=== PATIENT | female | born 1985 | race Caucasian/White ===

== ENCOUNTER 2018-08-30 08:58 | Inpatient (IN) | payer OTHER ==
[2018-08-30] MEDS ORDERED: LR 500 ML IV ONE (09:36)
[2018-08-30] MEDS ORDERED: CITRIC ACID/SODIUM CITRATE 30 ML UDCUP PO ONE (09:36)
[2018-08-30] MEDS ORDERED: ceFAZolin 2 GM/DEXTROSE 100 ML IV ONE (09:36)
--- NOTE | 2018-08-30 09:36 | PDGENHP ---
History and Physical - Chief Complaint Scheduled RLTCS, bilateral salpingectomies - History of Present Illness Calli is a 33 yo today at 39w0d by VIRIDIANA of 09/06/18 who presents for scheduled RLTCS (h/o 2 prior) with bilateral salpingectomies. Uncomplicated 3rd - two boys at home and having a baby girl. Transferred care to our office at 34 weeks. H/o clubbed feet bilaterally with G2 - christie garret is doing well, has not needed surgery, just bracing, etc. Also h/o anxiety and depression, no meds. Labs: A pos Antibody Neg RPR NR Rubella IMMUNE Hep B neg HIV neg GC/C neg Quad screen Neg Glucola 76 GBS NEGATIVE History Information - Allergies/Home Medication List Allergies/Adverse Reactions: No Known Allergies Allergy (Unverified 02/12/12 17:01) Home Medications: No Medications [NO HOME MEDICATIONS] 02/12/12 [Last Taken 02/12/12] I have personally reviewed and updated: family history, medical history, social history, surgical history - Past Medical History no pertinent PMH - Surgical History Additional surgical history: H/o LTCS x 2 - Family History Positive for: non-pertinent - Social History Smoking Status: Never smoked Alcohol Use: None Review of Systems Review of Systems: ROS: 10pt was reviewed & negative except for what was stated in HPI & below Physical Exam Physical Exam: Pleasant, alert, NAD. Belly soft, gravid, longitudinal lie. FHR 140bpm, mod aashish, accels present, no decels. Lab Data & Imaging Review 08/30/18 09:40 08/30/18 09:40 Assessment & Plan Assessment: 33 yo at 39w0d presents for scheduled RLTCS and bilateral salpingectomies. - Routine preop orders. - RBA discussed and consents signed again in person today. - Also specifically discussed bilateral salpingectomies and differentiation from tubal ligation. They are definitely sure they want to proceed with that and we decided together that salpingectomy sounded like the best approach. - Weight-based Ancef. MARCELO
[2018-08-30] MEDS ORDERED: ACETAMINOPHEN 500 MG TAB ONE (09:41)
[2018-08-30] MEDS: ACETAMINOPHEN 500 MG TAB PO SCH (09:46)
[2018-08-30] MEDS ORDERED: LR 1,000 ML IV SCH (10:00)
[2018-08-30 10:08] LABS: PLATELET COUNT 232 10^3/uL (150-400)
[2018-08-30] MEDS ORDERED: BUPIVACAINE/DEXTROSE 7.5MG/ML 2 ML SPINAL AMP SP ONE (12:29)
[2018-08-30] MEDS ORDERED: PHENYLEPHRINE HCL 100 MCG/ML SYR ONE (12:29)
[2018-08-30] MEDS ORDERED: ePHEDrine SULFATE 25 MG/5 ML SYR ONE (12:53)
[2018-08-30] MEDS ORDERED: OXYTOCIN/RINGERS LACTATE 20 UNIT/1,000 ML BAG IV ONE (12:56)
[2018-08-30] MEDS ORDERED: KETOROLAC 30 MG/1 ML SDV ONE (13:26)
[2018-08-30] MEDS ORDERED: ROPIVACAINE HCL 150 MG/30 ML INJ ONE (13:30)
[2018-08-30] MEDS ORDERED: PHENYLEPHRINE HCL 100 MCG/ML SYR IVP PRN (13:46)
[2018-08-30] MEDS ORDERED: METOCLOPRAMIDE 10 MG/2 ML VIAL IVP PRN (13:46)
[2018-08-30] MEDS ORDERED: HYDROCODONE/APAP 5/325 TAB PO PRN (13:46)
[2018-08-30] MEDS ORDERED: OXYCODONE/APAP 5/325 TAB PO PRN (13:46)
[2018-08-30] MEDS ORDERED: fentaNYL 100 MCG/2 ML INJ IVP PRN (13:46)
[2018-08-30] MEDS ORDERED: ONDANSETRON 4 MG/2 ML VIAL IVP PRN (13:46)
[2018-08-30] MEDS ORDERED: HYDROmorphONE/DILAUDID 1 MG/ML INJ IVP PRN ×2 (13:46→18:03)
[2018-08-30] MEDS ORDERED: MEPERIDINE 25 MG/0.5 ML AMP IVP PRN (13:46)
[2018-08-30] MEDS ORDERED: NALOXONE HCL 0.4 MG/ML INJ IVP PRN (13:46)
--- NOTE | 2018-08-30 13:46 | PREANESOB ---
Obstetric Pre-Anesthesia Info - General Info Proposed Procedure: and bilateral salpingectomy : 3 Para: 2 VIRIDIANA: 09/06/18 Gestational Age: 39 week(s) and 0 day(s) - Info Status: Full Term - Labor Status Section History: Repeat Indications for Current Section: Elective/Repeat Anesthesia Allergies/Adverse Reactions: Allergy/AdvReac Type Severity Reaction Status Date / Time No Known Allergies Allergy Unverified 02/12/12 17:01 Home Medications: Medication Instructions Recorded No Medications [NO HOME 02/12/12 MEDICATIONS] Visit Medications: Generic Name Dose Route Start Last Admin Trade Name Freq PRN Reason Stop Dose Admin Acetaminophen 1,000 mg 08/30/18 14:00 08/30/18 09:46 Tylenol PO 02/26/19 13:59 1,000 mg Q8HRS NEGRA Administration Lactated Ringer's 1,000 mls @ 125 mls/hr 08/30/18 10:00 Lr IV 08/31/18 09:59 CONT NEGRA Discontinued Medications Generic Name Dose Route Start Last Admin Trade Name Freq PRN Reason Stop Dose Admin Acetaminophen Confirm 08/30/18 09:41 Tylenol Administered 08/30/18 09:42 Dose 1,000 mg .ROUTE .STK-MED ONE Bupivacaine HCl/Dextrose Confirm 08/30/18 12:29 Marcaine Spinal Administered 08/30/18 12:30 Dose 2 ml SP .STK-MED ONE Citric Acid/Sodium Citrate 30 ml 08/30/18 09:36 08/30/18 12:06 Bicitra PO 08/30/18 09:37 Not Given ONCALL ONE Ephedrine Sulfate Confirm 08/30/18 12:53 Ephedrine Sulfate Administered 08/30/18 12:54 Dose 25 mg .ROUTE .STK-MED ONE Cefazolin Sodium/Dextrose 100 mls @ 200 mls/hr 08/30/18 09:36 08/30/18 12:31 Ancef IV 08/30/18 10:05 100 mls ONCALL ONE Administration Protocol Lactated Ringer's 500 mls @ 0 mls/hr 08/30/18 09:36 08/30/18 09:49 Lr IV 08/30/18 09:37 500 mls ONCE ONE Administration As Directed Ketorolac Tromethamine Confirm 08/30/18 13:26 Toradol Administered 08/30/18 13:27 Dose 30 mg .ROUTE .STK-MED ONE Oxytocin/Lactated Ringer's Confirm 08/30/18 12:56 Pitocin 20 Units/Lr (Premix) Administered 08/30/18 12:57 Dose 20 unit IV .STK-MED ONE Phenylephrine HCl Confirm 08/30/18 12:29 Neosynephrine Administered 08/30/18 12:30 Dose 1,000 mcg .ROUTE .STK-MED ONE Ropivacaine Confirm 08/30/18 13:30 Naropin Administered 08/30/18 13:31 Dose 150 mg .ROUTE .STK-MED ONE - Anesthesia History Response to Local Anesthetics: Not Applicable Anesthesia & Operative History: Prob w/Prior Anesthesia (PONV) - Social History Substance Use/Abuse: Denies - Vital Signs Height/Weight (Nursing): Height 162.56 cm Weight 66.224 kg - Focused Exam Neck exam: FROM Mallampati Score: Class 1 Mouth exam: normal dental/mouth exam Pulmonary: no respiratory distress Cardiovascular: regular rate and rhythym Labs: 08/30/18 09:40 08/30/18 09:40 Patient ABO/Rh A POSITIVE 08/30/18 09:40 Uric Acid 4.2 mg/dL (2.5-6.8) 08/30/18 09:40 Total Bilirubin 0.7 mg/dL (0.1-1.4) 08/30/18 09:40 Conjugated Bilirubin 0.2 mg/dL (0.0-0.5) 08/30/18 09:40 Unconjugated Bilirubin 0.5 mg/dL (0.0-1.1) 08/30/18 09:40 AST 19 IU/L (14-46) 08/30/18 09:40 ALT 7 IU/L (9-52) L 08/30/18 09:40 Lactate Dehydrogenase 445 IU/L (313-618) 08/30/18 09:40 - Plan Consent Signed and on Chart: Yes Patient/Guardian Understands and Agrees to Plan: Yes
--- NOTE | 2018-08-30 13:58 | POSTOPPROG ---
Post Op Note Date of Operation: 08/30/18 Surgeon: Eros Mckeon Automotive Manager: Geraldine Armendariz RN Anesthesia: Spinal Pre-op Diagnosis: Scheduled RLTCS, bilateral salpingectomies Post-op Diagnosis: Same Findings: Thin meconium, minimal scar tissue, normal uterus/tubes/ovaries Inf/Abcess present in the surg proc area at time of surgery?: No EBL: 600cc Complications: None Specimen(s): Placenta not sent, cord blood gasses not sent. Bilateral fallopian tube segments
[2018-08-30] MEDS ORDERED: PROMETHAZINE HCL 25 MG/ML INJ IVP PRN (14:01)
--- NOTE | 2018-08-30 14:01 | OBDEL ---
Info Type: Repeat Presentation at Delivery: Vertex L&D Analgesia/Anesthesia Type: Spinal GBS+: No Intrapartum Medications: Generic Name Dose Route Start Last Admin Trade Name Eduardo PRN Reason Stop Dose Admin Acetaminophen 1,000 mg 08/30/18 14:00 08/30/18 09:46 Tylenol PO 02/26/19 13:59 1,000 mg Q8HRS NEGRA Administration Discontinued Medications Generic Name Dose Route Start Last Admin Trade Name Eduardo PRN Reason Stop Dose Admin Citric Acid/Sodium Citrate 30 ml 08/30/18 09:36 08/30/18 12:06 Bicitra PO 08/30/18 09:37 Not Given ONCALL ONE Cefazolin Sodium/Dextrose 100 mls @ 200 mls/hr 08/30/18 09:36 08/30/18 12:31 Ancef IV 08/30/18 10:05 100 mls ONCALL ONE Administration Protocol Lactated Ringer's 500 mls @ 0 mls/hr 08/30/18 09:36 08/30/18 09:49 Lr IV 08/30/18 09:37 500 mls ONCE ONE Administration As Directed Operative Report - Delivery Pre-op Diagnoses: Scheduled RLTCS, h/o CS x 2, desires permanent contraception Post-op Diagnoses: Same History of Prior Section: Yes Number of Prior Sections: 2 Nulliparous Prior to Delivery: No Indications for Current Section: Elective/Repeat Procedure: Scheduled Surgeon: Eros Mckeon Senior Scrum Master: Geraldine Armendariz Anesthesiologist: Ashok Perez Complications: None Findings: Minimal scar tissue, normal uterus, tubes and ovaries Specimen(s)/Path: Other (Specify) (Bilateral fallopian tubes) EBL: 600 [place] Data VIRIDIANA: 09/06/18 Gestational Age: 39 week(s) and 0 day(s) Frank Delivery Date: 08/30/18 Delivery Time: 13:12 Sex of Infant: Female [place] Weight (gm): 2836 g Score (1 Min): 7 Score (5 Min): 8 ICD10 Worksheet Patient Problems: Problems Problem Status Onset H/O bilateral salpingectomy Acute H/O section Acute Meconium in amniotic fluid Acute - ICD10 Problem Qualifiers (1) H/O section (2) Meconium in amniotic fluid (3) H/O bilateral salpingectomy
--- NOTE | 2018-08-30 14:01 | SUROPNOTE ---
[facility] Operative Report - Surgery Date of Operation: 08/30/18 Surgeon: Eros Mckeon Family Practitioner: Geraldine Armendariz RN Anesthesia: Spinal Pre-op Diagnosis: Scheduled RLTCS, bilateral salpingectomies Post-op Diagnosis: Same Findings: Thin meconium, minimal scar tissue, normal uterus/tubes/ovaries Inf/Abcess present in the surg proc area at time of surgery?: No EBL: 600cc Complications: None Specimen(s): Placenta not sent, cord blood gasses not sent. Bilateral fallopian tube segments Technique: The patient was taken to the OR where spinal was placed and anesthesia found to be adequate. The patient was then positioned supine with a leftward tilt and a time-out was performed. She was given weight-based antibiotics prior to skin incision. The abdomen was prepped and draped in normal sterile fashion. A Pfannenstiel skin incision was made with the scalpel and carried down to the fascia. Her prior transverse scar was excised prior to that dissection. The fascia was incised in the midline and the incision extended bilaterally sharply with scissors. The fascia was dissected off of the underlying rectus muscles superiorly and not inferiorly also sharply using scissors. The rectus were in the midline and the peritoneum identified and entered bluntly without issue. Minimal adhesions encountered as described in findings. The peritoneal incision was extended and the bladder blade was then placed. The vesicouterine junction was identified and a bladder flap not created. A transverse incision was made with the scalpel in the lower uterine segment and extended with cephalad and caudad traction on the incision edges. The head was encountered and easily elevated out of the pelvis and delivered atraumatically, followed by the shoulders and body. The nose and mouth were bulb suctioned. We did wait for 60 seconds before clamping and cutting the cord and then the was handed to pediatric staff. Cord blood gases were not sent and the placenta was not sent to pathology. The uterus was then exteriorized and carefully wiped of all debris. The uterus was closed in two layers - the first layer was running with 180 0-vloc and the second a vertical imbricating layer using 0-vicryl. The gutters were cleared of all clots. The uterine incision was re-inspected and found to be hemostatic. Attention turned to salpingectomies. The right tube was isolated and elevated with a Job. The Ligasure device was used to amputate the right followed by the left tube with excellent hemostasis. Tubes were sent together for permanent path. The uterus was then returned to the abdomen. The fascia was elevated and the rectus muscles and subcutaneous tissues were found to be hemostatic. The fascia was closed with a running 0-Vicryl - single suture. The subcutaneous tissues were irrigated and hemostasis obtained. The subcutaneous space was closed with interrupted sutures of 2-0 vicryl. The skin was closed with 4-0 vloc undyed and then covered with Medipore dressing. The patient tolerated the procedure and was taken to recovery in stable condition. Lap, needle, sponge, and instrument count were announced as correct times two. I was present and scrubbed for the entire case.
[2018-08-30] MEDS ORDERED: KETOROLAC 30 MG/1 ML SDV IVP SCH (14:15)
[2018-08-30] MEDS ORDERED: ACETAMINOPHEN 325 MG TAB PO SCH (14:15)
[2018-08-30] MEDS ORDERED: IBUPROFEN 600 MG TAB PO SCH (14:15)
[2018-08-30] MEDS: DOCUSATE SODIUM 100 MG CAP PO PRN (19:52)
[2018-08-30] MEDS: KETOROLAC 30 MG/1 ML SDV IVP SCH (19:53)
[2018-08-30] MEDS: oxyCODONE IR 5 MG TAB PO PRN (19:53)
[2018-08-30] MEDS: FLUoxetine 20 MG CAP PO SCH (20:51)
[2018-08-31] MEDS: oxyCODONE IR 5 MG TAB PO PRN ×7 (00:06→23:59)
[2018-08-31] MEDS: SIMETHICONE 80 MG TAB CHEW PO PRN ×2 (00:06→08:57)
[2018-08-31] MEDS: KETOROLAC 30 MG/1 ML SDV IVP SCH ×2 (02:06→08:47)
[2018-08-31] MEDS: DOCUSATE SODIUM 100 MG CAP PO PRN ×2 (08:48→19:40)
[2018-08-31] MEDS: ACETAMINOPHEN 500 MG TAB PO SCH ×4 (08:49→23:23)
--- NOTE | 2018-08-31 11:43 | POSTANESTH ---
Post Anesthetic Evaluation Cardiovascular Status: Normal, Stable Respiratory Status: Normal, Stable Level of Consciousness/Mental Status: Can Participate in Eval Pain Control: Adequate, Prn Tx Ordered Nausea/Vomiting Control: Adequate, Prn Tx Ordered Complications Possibly Related to Anesthesia: None Noted
[2018-08-31] MEDS: IBUPROFEN 600 MG TAB PO SCH ×2 (13:12→19:40)
--- NOTE | 2018-08-31 13:30 | OBPP ---
Progress Note Assessment/Plan: Assessment: 33 G3 now P3 POD#1 s/p R-C/S with B salpingectomies - doing well. Good urine output. Mild anemia. Plan: DC urinary catheter, encourage ambulation. Continue routine postop cares. Start po iron. Cara Hernandez MD, FACOG [facility] 08/31/18 14:00 Subjective/ Course: Pt doing well. Resting comfortably. Has not been out of bed yet. Sitting up in bed without dizziness. Cornelius reg diet, no nausea. + flatus. Pumping and as baby still on O2 in the NICU, but doing well. 08/31/18 14:02 Objective: 08/31/18 05:30 08/30/18 09:40 Patient ABO/Rh A POSITIVE 08/30/18 09:40 Uric Acid 4.2 mg/dL (2.5-6.8) 08/30/18 09:40 Total Bilirubin 0.7 mg/dL (0.1-1.4) 08/30/18 09:40 Conjugated Bilirubin 0.2 mg/dL (0.0-0.5) 08/30/18 09:40 Unconjugated Bilirubin 0.5 mg/dL (0.0-1.1) 08/30/18 09:40 AST 19 IU/L (14-46) 08/30/18 09:40 ALT 7 IU/L (9-52) L 08/30/18 09:40 Lactate Dehydrogenase 445 IU/L (313-618) 08/30/18 09:40 Temp Pulse Resp BP Pulse Ox 36.4 C 67 18 111/70 96 08/31/18 04:05 08/31/18 04:05 08/31/18 04:05 08/31/18 04:05 08/31/18 04:05 Intake and Output 08/30/18 08/31/18 08/31/18 17:59 05:59 17:59 Intake Total 150 60 Output Total 2100 1200 Balance -1950 -1140 Weight 66.224 kg Intake: Oral (ml) 150 60 Output: Urine (ml) 700 1200 Catheter 700 1200 Estimated Blood Loss (ml) 1400 Other: Intake Quantity Yes Sufficient Urine bag currently with at least 500ml over past 7 hours or so gen - pleasant, NAD CV - RRR chest - CTAB abd - soft, fundus firm at u-2 with mild tenderness. Dressing c/d/i ext - trace edema, no calf tenderness Uterine Position/Fundal Height: Umbilicus -2 Uterine Tone: Firm
--- NOTE | 2018-08-31 14:41 | PDPAINCON ---
Pain Management Consultation - Subjective Pain is: low, well controlled Side effects include: No drowsy, No itchiness, No nausea, No nausea/vomiting Activity: able to ambulate - Objective Technique: single shot nerve block (Spinal/TAPs) Catheter site: clean, dry, intact Sensory and motor exam: block has resolved, no apparent ill effects Vital signs: stable - Assessment/Plan Assessment/Plan: pain well-controlled, continue current mgmt
[2018-08-31] MEDS: FERROUS SULFATE 140 MG TAB.ER PO SCH (19:40)
[2018-08-31] MEDS: FLUoxetine 20 MG CAP PO SCH (23:23)
[2018-09-01] MEDS: IBUPROFEN 600 MG TAB PO SCH ×4 (01:51→21:08)
[2018-09-01] MEDS: oxyCODONE IR 5 MG TAB PO PRN ×5 (05:45→21:55)
[2018-09-01] MEDS: FERROUS SULFATE 140 MG TAB.ER PO SCH ×3 (08:16→09:45)
[2018-09-01] MEDS: DOCUSATE SODIUM 100 MG CAP PO PRN ×2 (08:16→21:08)
[2018-09-01] MEDS: ACETAMINOPHEN 500 MG TAB PO SCH ×2 (08:17→16:56)
--- NOTE | 2018-09-01 09:35 | OBPP ---
Progress Note Assessment/Plan: Assessment: 1) s/p RCS and BS POD #2 - pt is stable 2) Anemia - pt is asymptomatic Plan: Continue routine post-op care Encourage ambulation Cont iron and bowel protocol Baby girl is is NICU secondary to meconium aspiration Plan for d/c home in am 11/8 09/01/18 09:31 Subjective/ Course: Pt doing well. Resting comfortably. Has not been out of bed yet. Sitting up in bed without dizziness. Jessica reg diet, no nausea. + flatus. Pumping and as baby still on O2 in the NICU, but doing well. 08/31/18 14:02 09/01/18 09:33 Pt seen and examined. Doing well with no complaints. Pain is well controlled. Pt is OOB, jessica regular diet, voiding without difficulty and passing flatus. No BM yet. Mod lochia. Denies any f/c/n/v/CP or SOB. BF and pumping is going well. Objective: 08/31/18 05:30 08/30/18 09:40 Patient ABO/Rh A POSITIVE 08/30/18 09:40 Uric Acid 4.2 mg/dL (2.5-6.8) 08/30/18 09:40 Total Bilirubin 0.7 mg/dL (0.1-1.4) 08/30/18 09:40 Conjugated Bilirubin 0.2 mg/dL (0.0-0.5) 08/30/18 09:40 Unconjugated Bilirubin 0.5 mg/dL (0.0-1.1) 08/30/18 09:40 AST 19 IU/L (14-46) 08/30/18 09:40 ALT 7 IU/L (9-52) L 08/30/18 09:40 Lactate Dehydrogenase 445 IU/L (313-618) 08/30/18 09:40 Temp Pulse Resp BP Pulse Ox 36.6 C 72 16 122/78 H 96 09/01/18 04:45 09/01/18 04:45 09/01/18 04:45 09/01/18 04:45 09/01/18 04:45 Uterine Position/Fundal Height: Umbilicus -2 Uterine Tone: Firm Physical Exam - Physical Exam General Appearance: WD/WN, alert, no apparent distress Respiratory: lungs clear, normal breath sounds Cardiac/Chest: regular rate, rhythm Abdomen: normal bowel sounds, soft, flatus (+), incision (C/D/I, well approximated with sutures), other (appropriate tenderness) Extremities: non-tender, normal inspection Skin: normal color, warm/dry Neuro/Psych: alert, normal mood/affect, oriented x 3
[2018-09-01] MEDS: FLUoxetine 20 MG CAP PO SCH ×2 (16:34→21:07)
--- NOTE | 2018-09-01 22:06 | OBPP ---
Progress Note Assessment/Plan: Assessment: 1) s/p RCS and BS POD #2 - pt is stable 2) Anemia - pt is asymptomatic 3) Post-op wound hematoma Plan: Called by Rn re: wound with drainage of dark brown blood with placement of pad around 2000 Wound inspected and small 1 cm opening noted on R side of incision with drainage of old blood; + ecchymosis noted; minimal induration; +erythema R side of incision Under sterile technique, wound cleaned with hydrogen peroxide and probed with a sterile q-tip along entire wound with more drainage of old blood; fascia intact No abx needed at this time Will cont to allow to drain, may need to completely open wound and evacuate hematoma Pt is afebrile 09/01/18 22:00 Subjective/ Course: Pt doing well. Resting comfortably. Has not been out of bed yet. Sitting up in bed without dizziness. Jessica reg diet, no nausea. + flatus. Pumping and as baby still on O2 in the NICU, but doing well. 08/31/18 14:02 09/01/18 09:33 Pt seen and examined. Doing well with no complaints. Pain is well controlled. Pt is OOB, jessica regular diet, voiding without difficulty and passing flatus. No BM yet. Mod lochia. Denies any f/c/n/v/CP or SOB. BF and pumping is going well. 09/01/18 22:06 Pt noted "stinging" and tenderness along R side of incision this evening. Denies any fevers or chills. Objective: 08/31/18 05:30 08/30/18 09:40 Patient ABO/Rh A POSITIVE 08/30/18 09:40 Uric Acid 4.2 mg/dL (2.5-6.8) 08/30/18 09:40 Total Bilirubin 0.7 mg/dL (0.1-1.4) 08/30/18 09:40 Conjugated Bilirubin 0.2 mg/dL (0.0-0.5) 08/30/18 09:40 Unconjugated Bilirubin 0.5 mg/dL (0.0-1.1) 08/30/18 09:40 AST 19 IU/L (14-46) 08/30/18 09:40 ALT 7 IU/L (9-52) L 08/30/18 09:40 Lactate Dehydrogenase 445 IU/L (313-618) 08/30/18 09:40 Temp Pulse Resp BP Pulse Ox 36.1 C 66 18 118/68 96 09/01/18 07:30 09/01/18 07:30 09/01/18 07:30 09/01/18 07:30 09/01/18 07:30 Physical Exam - Physical Exam General Appearance: WD/WN, alert, no apparent distress Abdomen: non-tender, soft, incision (Small, 1 cm opening on R side of incision with drainage of dark, brown blood; +erythema on R side; minimal induration; + ecchymosis; slight tenderness) Neuro/Psych: alert, normal mood/affect, oriented x 3
[2018-09-02] MEDS: ACETAMINOPHEN 500 MG TAB PO SCH ×4 (03:43→20:02)
[2018-09-02] MEDS: IBUPROFEN 600 MG TAB PO SCH ×4 (03:43→16:26)
[2018-09-02] MEDS: FERROUS SULFATE 140 MG TAB.ER PO SCH (09:53)
[2018-09-02] MEDS: DOCUSATE SODIUM 100 MG CAP PO PRN ×2 (09:55→18:17)
[2018-09-02] MEDS: oxyCODONE IR 5 MG TAB PO PRN ×3 (10:10→20:00)
--- NOTE | 2018-09-02 10:32 | OBPP ---
Progress Note Assessment/Plan: Assessment: POD 3 s/p RCS, BS mild cellulitis and serosang d/c from right angle of incision pain in good control baby on O2 for mec aspiration Plan: begin Keflex 250mg QID, only Qtip opening - will not pack for now, cont to watch 09/02/18 10:28 Subjective/ Course: Pt doing well. Resting comfortably. Has not been out of bed yet. Sitting up in bed without dizziness. Jessica reg diet, no nausea. + flatus. Pumping and as baby still on O2 in the NICU, but doing well. 08/31/18 14:02 09/01/18 09:33 Pt seen and examined. Doing well with no complaints. Pain is well controlled. Pt is OOB, jessica regular diet, voiding without difficulty and passing flatus. No BM yet. Mod lochia. Denies any f/c/n/v/CP or SOB. BF and pumping is going well. 09/01/18 22:06 Pt noted "stinging" and tenderness along R side of incision this evening. Denies any fevers or chills. 09/02/18 10:30 Pt very anxious about incisional drainage, hasn't used oxy since 10pm. doing ibu/tyl. marte drainage - small amt. lochia is light. urinating fine. has been pumping and BF occas - very engorged right now. amb fine - not dizzy Objective: 08/31/18 05:30 08/30/18 09:40 Patient ABO/Rh A POSITIVE 08/30/18 09:40 Uric Acid 4.2 mg/dL (2.5-6.8) 08/30/18 09:40 Total Bilirubin 0.7 mg/dL (0.1-1.4) 08/30/18 09:40 Conjugated Bilirubin 0.2 mg/dL (0.0-0.5) 08/30/18 09:40 Unconjugated Bilirubin 0.5 mg/dL (0.0-1.1) 08/30/18 09:40 AST 19 IU/L (14-46) 08/30/18 09:40 ALT 7 IU/L (9-52) L 08/30/18 09:40 Lactate Dehydrogenase 445 IU/L (313-618) 08/30/18 09:40 Temp Pulse Resp BP Pulse Ox 36.0 C 77 18 118/77 96 09/01/18 21:00 09/01/18 21:00 09/01/18 21:00 09/01/18 21:00 09/01/18 21:00 Uterine Position/Fundal Height: Umbilicus -1 Uterine Tone: Firm Physical Exam - Physical Exam Abdomen: non-tender (approp post op tenderness), soft, incision (with mild erythema on right angle - opened enough for qtip insert, no pocket of hematoma, mild serosang d/c) Extremities: non-tender, pedal edema (mild)
[2018-09-02] MEDS: CEPHALEXIN 250 MG CAP PO SCH ×2 (12:16→18:13)
[2018-09-02] MEDS: FLUoxetine 20 MG CAP PO SCH (20:05)
[2018-09-02] MEDS: SIMETHICONE 80 MG TAB CHEW PO PRN (20:06)
[2018-09-03] MEDS: CEPHALEXIN 250 MG CAP PO SCH ×3 (00:13→12:02)
[2018-09-03] MEDS: IBUPROFEN 600 MG TAB PO SCH ×3 (00:17→11:40)
[2018-09-03] MEDS: ACETAMINOPHEN 500 MG TAB PO SCH ×2 (05:31→11:41)
[2018-09-03 05:43] VITALS: BP 133/89
[2018-09-03] MEDS: FERROUS SULFATE 140 MG TAB.ER PO SCH (09:29)
[2018-09-03] MEDS: DOCUSATE SODIUM 100 MG CAP PO PRN (09:29)
--- NOTE | 2018-09-03 09:30 | OBGCSDC ---
General Delivery Information - General Info : 3 Para: 3 Abortions: 0 Type: Repeat L&D Analgesia/Anesthesia Type: Spinal Admission Date: 08/30/18 Labs: Patient ABO/Rh A POSITIVE 08/30/18 09:40 Hct 35.3 % (38.0-47.0) L 08/31/18 05:30 - Hospital Course : Pt doing well. Resting comfortably. Has not been out of bed yet. Sitting up in bed without dizziness. Cornelius reg diet, no nausea. + flatus. Pumping and as baby still on O2 in the NICU, but doing well. 08/31/18 14:02 09/01/18 09:33 Pt seen and examined. Doing well with no complaints. Pain is well controlled. Pt is OOB, cornelius regular diet, voiding without difficulty and passing flatus. No BM yet. Mod lochia. Denies any f/c/n/v/CP or SOB. BF and pumping is going well. 09/01/18 22:06 Pt noted "stinging" and tenderness along R side of incision this evening. Denies any fevers or chills. 09/02/18 10:30 Pt very anxious about incisional drainage, hasn't used oxy since 10pm. doing ibu/tyl. marte drainage - small amt. lochia is light. urinating fine. has been pumping and BF occas - very engorged right now. amb fine - not dizzy 09/03/18 09:24 Pt is feeling much better today. She had a nml BM this am. She is ambulating and voiding and has min lochia. Her incision also feels better, less pain and min drainage. Her milk is in and her breasts are engorged. She is nursing and pumping and doing better this time than with her other kids. They are ready to go home, just awaiting O2 instructions about the baby from peds. - Delivery Providers Surgeon: Eros Mckeon Fiscal Economist: Geraldine Armendariz Anesthesiologist: Ashok Perez - Delivery Number of Prior Sections: 2 Indications for Current Section: Elective/Repeat Surgical Procedures: Scheduled Intra-op Complications: None EBL: 600 Data VIRIDIANA: 09/06/18 Gestational Age: 39 week(s) and 4 day(s) Frank Delivery Date: 08/30/18 Delivery Time: 13:12 Sex of : Female [place] Weight (gm): 2836 g Score (1 Min): 7 Score (5 Min): 8 Discharge Information - Discharge Information Prescriptions: oxyCODONE IR [Oxycodone Ir (*)] 5 - 10 mg PO Q4HRS PRN #30 tab PRN Reason: Pain, Severe Cephalexin [Keflex (*)] 250 mg PO Q6HRS #20 cap Ferrous Sulfate [Slow Fe 140 MG (*)] 140 mg PO DAILY #30 tab.er Ibuprofen [Motrin (*)] 600 mg PO Q6H #30 tab Condition: Good Instruction/Follow Up: One Week, Two Weeks, Six Weeks
--- NOTE | 2018-09-03 09:30 | OBPP ---
Progress Note Assessment/Plan: Assessment: 33 y/o POD #4 s/p Rpt LTCS and BS Plan: Cellulitis is improving on Keflex, will continue 7 day course. Will also give Rx Ibuprofen and Gilmer. I instructed her how to keep the incision clean and dry , and recommend follow-up wound check next week at [facility]. 09/03/18 09:27 Subjective/ Course: Pt doing well. Resting comfortably. Has not been out of bed yet. Sitting up in bed without dizziness. Jessica reg diet, no nausea. + flatus. Pumping and as baby still on O2 in the NICU, but doing well. 08/31/18 14:02 09/01/18 09:33 Pt seen and examined. Doing well with no complaints. Pain is well controlled. Pt is OOB, jessica regular diet, voiding without difficulty and passing flatus. No BM yet. Mod lochia. Denies any f/c/n/v/CP or SOB. BF and pumping is going well. 09/01/18 22:06 Pt noted "stinging" and tenderness along R side of incision this evening. Denies any fevers or chills. 09/02/18 10:30 Pt very anxious about incisional drainage, hasn't used oxy since 10pm. doing ibu/tyl. marte drainage - small amt. lochia is light. urinating fine. has been pumping and BF occas - very engorged right now. amb fine - not dizzy 09/03/18 09:24 Pt is feeling much better today. She had a nml BM this am. She is ambulating and voiding and has min lochia. Her incision also feels better, less pain and min drainage. Her milk is in and her breasts are engorged. She is nursing and pumping and doing better this time than with her other kids. They are ready to go home, just awaiting O2 instructions about the baby from peds. Objective: 08/31/18 05:30 08/30/18 09:40 Patient ABO/Rh A POSITIVE 08/30/18 09:40 Uric Acid 4.2 mg/dL (2.5-6.8) 08/30/18 09:40 Total Bilirubin 0.7 mg/dL (0.1-1.4) 11/05/18 09:40 Conjugated Bilirubin 0.2 mg/dL (0.0-0.5) 08/30/18 09:40 Unconjugated Bilirubin 0.5 mg/dL (0.0-1.1) 08/30/18 09:40 AST 19 IU/L (14-46) 08/30/18 09:40 ALT 7 IU/L (9-52) L 08/30/18 09:40 Lactate Dehydrogenase 445 IU/L (313-618) 08/30/18 09:40 Temp Pulse Resp BP Pulse Ox 36.6 C 97 18 133/89 H 97 09/03/18 05:42 09/03/18 05:42 09/03/18 00:31 09/03/18 05:42 09/03/18 00:31 Uterine Position/Fundal Height: Umbilicus -3 Uterine Tone: Firm Physical Exam - Physical Exam General Appearance: alert, no apparent distress Neck: non-tender, full range of motion, supple, normal inspection Respiratory: chest non-tender, lungs clear, normal breath sounds Cardiac/Chest: normal peripheral pulses, regular rate, rhythm Abdomen: normal bowel sounds, non-tender, soft, incision (small light brown drainage on bandage, much less erythema, no edema) Extremities: normal range of motion, non-tender, normal inspection, normal capillary refill, swelling (no), Danielle's sign (neg) DTR- Lower Extremities: Knee (R): 2+, Knee (L): 2+, Ankle (R): 2+, Ankle (L): 2+ , Plantar (R): 2+, Plantar (L): 2+ Peripheral Pulses: 2+: carotid (R), carotid (L), femoral (R), femoral (L), dorsalis-pedis (R), dorsalis-pedis (L) Back: Normal inspection Skin: normal color, warm/dry Neuro/Psych: no motor/sensory deficits, alert, normal mood/affect, oriented x 3
== END 2018-09-03 14:07 | disposition home or self-care (01) | DRG 785 ==
LOC: FLD 08:58 → FOB 20:40
PROVIDERS: ADMIT Obstetrics & Gynecology; ATTEND Obstetrics & Gynecology
DX: O34.219 Maternal care for unspecified type scar from previous cesarean delivery (principal); O77.0 Labor and delivery complicated by meconium in amniotic fluid; O90.2 Hematoma of obstetric wound; O86.01 Infection of obstetric surgical wound, superficial incisional site; O90.81 Anemia of the puerperium; Z30.2 Encounter for sterilization; Z3A.39 39 weeks gestation of pregnancy; Z37.0 Single live birth
CPT/HCPCS: J0690; J1885; J2370; J2590; J2795